=== PATIENT | female | born 2005 | race Caucasian/White ===

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

== ENCOUNTER 2023-03-31 11:35 | Emergency (ER) | payer OTHER ==
--- NOTE | 2023-03-31 11:56 | ED Physician Documentation ---
PD HPI URI - Stated complaint Stated Complaint: SORE THROAT,BODY ACHES,SOA,VENTURA - Chief complaint Chief Complaint: Heent - History obtained from History obtained from: Patient - Additional information Additional information: Previously healthy fully immunized 17-year-old has had sore throat for 3 weeks associate with fatigue, sweats and chills without measured fevers and swollen lymph nodes. No sick contacts that she knows of. 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 : None HEENT: None Psych: None Musculoskeletal: None Derm: None - Past Surgical History Past Surgical History: No General: Cholecystectomy - Present Medications Home Medications: Ambulatory Orders Medication Instructions Recorded Confirmed cefUROXime axetiL [Ceftin] 250 mg PO BID 7 Days #14 tablet 02/18/21 dexAMETHasone [Decadron] 4 mg PO DAILY #4 tablet 02/18/21 HYDROcod/ACETAM 5/325 [[place] 5/325] 1 - 2 tab PO Q6H PRN #10 tablet 10/11/22 levoFLOXacin [Levofloxacin] 500 mg PO DAILY #9 tablet 10/11/22 - Allergies Allergies/Adverse Reactions: Allergies Allergy/AdvReac Type Severity Reaction Status Date / Time Penicillins Allergy Rash Verified 10/11/22 16:04 morphine AdvReac Anxiety Verified 10/11/22 16:04 - Social History Does the pt smoke?: No Smoking Status: Never smoker Does the pt drink ETOH?: No Does the pt have substance abuse?: No - Immunizations Immunizations are current?: Yes PD ED PE NORMAL - Vitals Vital signs reviewed: Yes - General General: Alert and oriented X 3, No acute distress - HEENT HEENT: PERRL, EOMI, Other (Large beefy tonsils without exudates) - Neck Neck: Other (Shotty anterior and posterior cervical adenopathy) - Cardiac Cardiac: RRR, No murmur - Respiratory Respiratory: No respiratory distress, Clear bilaterally - Abdomen Abdomen: Non tender - Derm Derm: No rash - Neuro Neuro: Alert and oriented X 3, Normal speech Results - Vitals Vitals: Vital Signs - 24 hr 03/31/23 03/31/23 11:48 12:48 Temperature 36.3 C L 36.7 C Heart Rate 82 74 Respiratory 15 14 Rate Blood Pressure 139/82 H 117/74 O2 Saturation 99 96 Oxygen O2 Source Room air - Labs Labs: Laboratory Tests 03/31/23 03/31/23 03/31/23 12:00 12:09 12:09 WBC 13.7 H RBC 4.37 Hgb 13.1 Hct 39.4 MCV 90.2 MCH 30.0 MCHC 33.2 RDW 11.9 L Plt Count 339 MPV 9.4 Neut # (Auto) 6.2 Lymph # (Auto) 5.9 H Ruther[place] # (Auto) 0.9 Eos # (Auto) 0.4 Baso # (Auto) 0.1 Absolute Nucleated RBC 0.00 Nucleated RBC % 0.0 Manual Slide Review Indicated WBC Morphology NORMAL APPEARANCE Platelet Estimate NORMAL (130-450,000) Platelet Morphology NORMAL APPEARANCE RBC Morph Micro Appear NORMAL APPEARANCE Sodium Potassium Chloride Carbon Dioxide Anion Gap BUN Creatinine Estimated GFR (MDRD) Glucose Calcium Total Bilirubin AST ALT Alkaline Phosphatase Total Protein Albumin Globulin Albumin/Globulin Ratio Infectious Rutherford Assay NEGATIVE Group A Strep Rapid Negative 03/31/23 12:09 WBC RBC Hgb Hct MCV MCH MCHC RDW Plt Count MPV Neut # (Auto) Lymph # (Auto) [place] # (Auto) Eos # (Auto) Baso # (Auto) Absolute Nucleated RBC Nucleated RBC % Manual Slide Review WBC Morphology Platelet Estimate Platelet Morphology RBC Morph Micro Appear Sodium 137 Potassium 4.2 Chloride 104 Carbon Dioxide 25 Anion Gap 8.0 BUN 13 Creatinine 0.7 Estimated GFR (MDRD) 108 Glucose 90 Calcium 9.0 Total Bilirubin 0.3 AST 10 ALT 14 Alkaline Phosphatase 47 Total Protein 6.7 Albumin 3.9 Globulin 2.8 Albumin/Globulin Ratio 1.4 Infectious [place] Assay Group A Strep Rapid PD Medical Decision Making - ED course ED course: 17-year-old presents with a mononucleosis-like syndrome with adenopathy and pharyngitis. Work-up in the emergency department demonstrates a leukocytosis with lymphocytic predominance, normal chemistry panel including liver enzymes and negative rapid strep and monotest. Still sounding like a mononucleosis-like syndrome. We will add on HIV and Levar-Knott PCR. Departure - Departure Disposition: 01 Home, Self Care Clinical Impression: Viral pharyngitis Condition: Good Record reviewed to determine appropriate education?: Yes Instructions: ED Pharyngitis Viral Report Pending Comments: Although your monotest is negative (which is not a perfectly senstive test), your symptoms and elevated lymphocyte count are suggestive of either mononucleosis or similar syndrome. A confirmatory Levar-Knott PCR is pending but that takes about a week. You can look the results up in the patient portal at the [email or web address] website. Recommend recheck with your physician in 1 week with repeat labs to recheck your lymphocyte count. Forms: PCP List
[2023-03-31 12:15] LABS: BASOPHILS # (AUTO) 0.1 10^3/uL (0.0-0.1); BASOPHILS % (AUTO) 0.8 %; EOSINOPHILS # (AUTO) 0.4 10^3/uL (0.0-0.7); EOSINOPHILS % (AUTO) 2.6 %; HCT - HEMATOCRIT 39.4 % (37.0-47.0); HGB - HEMOGLOBIN 13.1 g/dL (12.0-16.0); LYMPHOCYTES # (AUTO) 5.9 10^3/uL (1.5-3.5); LYMPHOCYTES % (AUTO) 43.5 %; MEAN CORPUSCULAR HGB CONC 33.2 g/dL (32.0-36.0); MEAN CORPUSCULAR VOLUME 90.2 fL (81.0-99.0); MEAN PLATELET VOLUME 9.4 fL (7.9-10.8); MONOCYTES # (AUTO) 0.9 10^3/uL (0.0-1.0); MONOCYTES % (AUTO) 6.3 %; NEUTROPHILS # (AUTO) 6.2 10^3/uL (1.5-6.6); NEUTROPHILS % (AUTO) 45.6 %; PLT - PLATELET COUNT 339 10^3/uL (130-450); RED BLOOD COUNT 4.37 10^6/uL (4.20-5.40); RED CELL DISTRIBUTION WIDTH 11.9 % (12.0-15.0); WHITE BLOOD COUNT 13.7 x10^3/uL (4.8-10.8)
[2023-03-31 12:17] LABS: RAPID STREP SCREEN Negative (Negative)
[2023-03-31 12:22] LABS: INFECTIOUS MONONUCLEOSIS NEGATIVE (Negative)
[2023-03-31 12:35] LABS: ALBUMIN 3.9 g/dL (3.2-5.5); ALBUMIN/GLOBULIN RATIO 1.4 (1.0-2.2); BILIRUBIN,TOTAL 0.3 mg/dL (0.2-1.0); CREATININE 0.7 mg/dL (0.6-1.3); POTASSIUM 4.2 mmol/L (3.5-4.5); TOTAL PROTEIN 6.7 g/dL (6.4-8.9)
[2023-03-31 12:36] LABS: SLIDE REVIEW? Indicated
[2023-03-31 12:51] LABS: PLATELET ESTIMATE, MANUAL NORMAL (130-450,000) (NORMAL); PLATELET MORPHOLOGY NORMAL APPEARANCE (NORMAL); RBC MORPHOLOGY (MULTIPLE) NORMAL APPEARANCE (NORMAL); WBC MORPHOLOGY (MULTIPLE) NORMAL APPEARANCE (NORMAL)
[2023-03-31 12:57] VITALS: BP 117/74; O2SAT 96
[2023-03-31 14:00] LABS: HIV RAPID SCREEN NEGATIVE (NEGATIVE)
[2023-04-01 04:09] LABS: CYTOMEGALOVIRUS (CMV) AB IGG <0.60 U/mL (0.00-0.59); CYTOMEGALOVIRUS (CMV) AB IGM <30.0 AU/mL (0.0-29.9)
[2023-04-01 09:08] LABS: EBV AB VCA IGG 74.7 U/mL (0.0-17.9); EBV AB VCA IGM <36.0 U/mL (0.0-35.9)
[2023-04-04 18:07] LABS: CMV QUANTITATION DNA PCR Negative (Negative)
== END 2023-03-31 13:37 | disposition home or self-care (01) ==
LOC: ED 11:35
DX: J02.9 Acute pharyngitis, unspecified (principal)
CPT/HCPCS: 36415; 80053; 85025; 86308; 86644; 86645; 86665; 86703; 87070; 87430; 87497; 87798; 99282; 99283

== ENCOUNTER 2023-04-06 08:00 | Outpatient (CLI) | payer OTHER ==
[2023-04-07 12:56] LABS: CHLAMYDIA TRACHOMATIS DNA NEGATIVE (NEGATIVE); NEISSERIA GONORRHOEAE DNA NEGATIVE (NEGATIVE); TRICHOMONAS VAGINALIS DNA NEGATIVE (NEGATIVE)
== END 2023-04-07 23:59 | disposition home or self-care (01) ==
LOC: LAB.WC 08:00
PROVIDERS: ATTEND Nurse Practitioner
DX: Z11.3 Encounter for screening for infections with a predominantly sexual mode of transmission (principal)
CPT/HCPCS: 87491; 87591; 87661

== ENCOUNTER 2023-04-22 08:00 | Outpatient (CLI) | payer OTHER ==
[2023-04-22 17:23] LABS: BILIRUBIN,URINE NEGATIVE (NEGATIVE); GLUCOSE, URINE (UA) NEGATIVE (NEGATIVE); KETONES,URINE (UA) NEGATIVE (NEGATIVE); LEUKOCYTE ESTERASE, URINE NEGATIVE (NEGATIVE); NITRITE,URINE NEGATIVE (NEGATIVE); OCCULT BLOOD,URINE LARGE (NEGATIVE); PROTEIN,URINE NEGATIVE (NEGATIVE); UROBILINOGEN,URINE 0.2 (NORMAL) E.U./dL (NORMAL)
[2023-04-22 17:59] LABS: BACTERIA,URINE Rare /HPF (None Seen); CLARITY,URINE CLEAR (CLEAR); RBC,URINE 0-5 /HPF (0-5); SQUAMOUS EPITHELIAL CELL,UR RARE Squamous (<= Few); WBC,URINE 0-3 /HPF (0-5)
[2023-04-22 21:52] LABS: CHLAMYDIA TRACHOMATIS DNA NEGATIVE (NEGATIVE); NEISSERIA GONORRHOEAE DNA NEGATIVE (NEGATIVE)
[2023-04-22 23:37] LABS: BACTERIAL VAGINOSIS DNA NEGATIVE (NEGATIVE); CANDIDA GLABRATA DNA NEGATIVE (NEGATIVE); CANDIDA GROUP DNA NEGATIVE (NEGATIVE); CANDIDA KRUSEI DNA NEGATIVE (NEGATIVE); TRICHOMONAS VAGINALIS DNA NEGATIVE (NEGATIVE)
== END 2023-04-22 23:59 | disposition home or self-care (01) ==
LOC: LAB.WC 08:00
PROVIDERS: ATTEND Nurse Practitioner
DX: R30.0 Dysuria (principal); Z11.3 Encounter for screening for infections with a predominantly sexual mode of transmission
CPT/HCPCS: 81001; 81514; 87086; 87491; 87591; 87661